=== PATIENT | male | born 1980 | race Two or more races ===

== ENCOUNTER 2017-01-31 21:39 | Emergency (ER) | payer BC ==
[2017-01-31 21:49] VITALS: BP 138/82; PULSE 81; RESP 20; TEMP 97.6; O2SAT 95
--- NOTE | 2017-01-31 22:22 | C.PDOC ---
History Of Present Illness 36 y/o male, with history of hemorrhoids for 6 months, presents to ED with complaint of rectal pain. Patient notes he was seen by his doctor and was given hemorrhoid ointment, which he has used with improvement, but notes pain has increased over the past few days. Patient denies abdominal pain, rectal bleeding , or other associated symptoms. No stool softeners taken but notes he has been eating a lot of fiber. Time Seen by Provider: 01/31/17 21:50 Chief Complaint (Nursing): Medical Clearance History Per: Patient History/Exam Limitations: no limitations Onset/Duration Of Symptoms: Persistent Current Symptoms Are (Timing): Worse Reports Recently: Treated By A Physician Recent travel outside of the [place]: No Past Medical History Reviewed: Historical Data, Nursing Documentation, Vital Signs Vital Signs: Last Vital Signs Temp 97.6 F 01/31/17 21:47 Pulse 81 01/31/17 21:47 Resp 20 01/31/17 22:24 BP 138/82 01/31/17 21:47 Pulse Ox 95 01/31/17 22:22 - Medical History PMH: No Chronic Diseases Family History: States: Unknown Family Hx - Social History Hx Alcohol Use: No Hx Substance Use: No Review Of Systems Except As Marked, All Systems Reviewed And Found Negative. Constitutional: Negative for: Fever, Chills Gastrointestinal: Positive for: Rectal Pain. Negative for: Nausea, Vomiting, Abdominal Pain, Diarrhea, Hematochezia Skin: Negative for: Rash Physical Exam - Physical Exam Appears: Non-toxic, No Acute Distress Skin: Normal Color, Warm, Dry Head: Atraumatic, Normacephalic Oral Mucosa: Moist Chest: Symmetrical Cardiovascular: Rhythm Regular Respiratory: Normal Breath Sounds, No Rales, No Rhonchi, No Wheezing Gastrointestinal/Abdominal: Soft, No Tenderness, No Guarding, No Rebound Rectal: No Blood Streaked Stool, Hemorrhoids (external hemorrhoid present), No Mass Back: Normal Inspection Extremity: Normal ROM, Capillary Refill (< 2 sec. ) Neurological/Psych: Oriented x3, Normal Speech, Normal Cognition ED Course And Treatment O2 Sat by Pulse Oximetry: 95 (RA) Pulse Ox Interpretation: Normal Progress Note: Patient is requesting hemorrhoid to be excised today in the ER. Patient then became verbally agressive and declined pain medication. Patient walked out of ER prior to discharge. Disposition - Disposition Disposition: QASIMMENT - ER ONLY Disposition Time: 22:10 Condition: STABLE - Clinical Impression Clinical Impression: External hemorrhoid - PA / [employer] / Resident Statement MD/DO has reviewed & agrees with the documentation as recorded. - Scribe Statement The provider has reviewed the documentation as recorded by the Ngaibe Ede La All medical record entries made by the Josseline were at my direction and personally dictated by me. I have reviewed the chart and agree that the record accurately reflects my personal performance of the history, physical exam, medical decision making, and the department course for this patient. I have also personally directed, reviewed, and agree with the discharge instructions and disposition.
== END 2017-01-31 22:24 | disposition left against medical advice (07) ==
LOC: C.ER 21:39
DX: K64.4 Residual hemorrhoidal skin tags (principal)